=== PATIENT | female | born 1960 | race Asian ===

== ENCOUNTER 2019-03-09 05:21 | Day surgery (SDC) | payer BC, OTHER ==
[~2019-03-09] VITALS: Ht 165.1 cm; Wt 86.0 kg
[2019-03-09] MEDS ORDERED: LACTATED RINGERS 1,000 ML IV SCH (06:03)
[2019-03-09] MEDS ORDERED: LIDOCAINE 1%, 20ML ONE (06:23)
[2019-03-09] MEDS ORDERED: BUPIVACAINE/PF 0.5% ONE (06:23)
[2019-03-09] MEDS ORDERED: EPINEPHRINE 1 MG/ML, 1ML ONE (06:23)
[2019-03-09] MEDS ORDERED: PITA2TAB2 PO (06:31)
[2019-03-09] MEDS ORDERED: MONT10TA9 PO (06:31)
[2019-03-09] MEDS ORDERED: FLUT1BLS INH (06:32)
[2019-03-09] MEDS ORDERED: ALBUTEROL HFA INH (06:32)
[2019-03-09] MEDS ORDERED: TIOT18CA INH (06:32)
[2019-03-09] MEDS ORDERED: ELET40TA PO (06:32)
[2019-03-09 06:33] VITALS: BP 160/92
[2019-03-09] MEDS ORDERED: MIDAZOLAM 1 MG/ML, 2ML ONE (06:49)
[2019-03-09] MEDS ORDERED: FENTANYL PF 100 MCG/2ML ONE (06:49)
[2019-03-09] MEDS ORDERED: PROPOFOL 10 MG/ML, 20ML ONE (07:16)
[2019-03-09] MEDS ORDERED: DEXAMETHASONE 4 MG/ML, 1ML ONE (07:16)
[2019-03-09] MEDS ORDERED: CEFAZOLIN 1,000 MG ONE (07:16)
[2019-03-09] MEDS ORDERED: ONDANSETRON 2MG/ML, 2ML ONE (07:16)
[2019-03-09] MEDS ORDERED: OXYcodone 5 MG/5 ML ORAL.SOL UDC PO PRN (07:30)
[2019-03-09] MEDS ORDERED: LABETALOL 5MG/ML, 20ML IV PRN (07:30)
[2019-03-09] MEDS ORDERED: FENTANYL PF 100 MCG/2ML IV PRN (07:30)
[2019-03-09] MEDS ORDERED: PROMETHAZINE 25 MG/ML, 1ML IV PRN (07:30)
[2019-03-09] MEDS ORDERED: KETOROLAC 30 MG/1 ML IV PRN (07:30)
[2019-03-09] MEDS ORDERED: hydrALAzine 20 MG/ML, 1ML IV PRN (07:30)
[2019-03-09] MEDS ORDERED: ALBUTEROL SULFATE 2.5 MG/3 ML NPPB PRN (07:30)
[2019-03-09] MEDS ORDERED: DIAZEPAM 5 MG/ML, 2ML IVPush PRN (07:30)
[2019-03-09] MEDS ORDERED: ACETAMINOPHEN 325 MG TABLET PO PRN (07:30)
[2019-03-09] MEDS ORDERED: HYDROmorphone 2 MG/ML, 1ML IVPush PRN (07:30)
[2019-03-09] MEDS ORDERED: MEPERIDINE/PF 25MG/0.5ML IVPush PRN (07:30)
== END 2019-03-09 08:55 | disposition home or self-care (01) ==
LOC: OUT 05:21
PROVIDERS: ATTEND Orthopaedic Surgery
DX: M65.321 Trigger finger, right index finger (principal); M65.322 Trigger finger, left index finger; J45.909 Unspecified asthma, uncomplicated; Z79.891 Long term (current) use of opiate analgesic; Z79.899 Other long term (current) drug therapy; Z85.3 Personal history of malignant neoplasm of breast; Z72.89 Other problems related to lifestyle
CPT/HCPCS: 26055; 93005; J0171; J0690; J1100; J2250; J2405; J2704; J3010; J7120